=== PATIENT | female | born 1995 | race American Indian/Alaskan Native ===

== ENCOUNTER 2017-01-12 15:58 | Emergency (ER) | payer MEDICAID ==
[2017-01-12 16:04] VITALS: BP 128/80; PULSE 97; RESP 18; TEMP 98; O2SAT 98
== END 2017-01-12 17:30 | disposition left against medical advice (07) ==
LOC: H.ER 15:58
DX: Z02.89 Encounter for other administrative examinations (principal)

== ENCOUNTER 2017-11-02 13:18 | Emergency (ER) | payer MEDICAID ==
[2017-11-02 13:27] VITALS: O2SAT 100
[2017-11-02 14:14] LABS: BASO # 0.1 K/uL (0.0-0.2); BASO % 0.5 % (0.0-2.0); EOS # 0.1 K/uL (0.0-0.7); EOS % 0.8 % (0.0-4.0); HEMOGLOBIN 12.1 g/dL (12.0-16.0); LYMPH # 2.4 K/uL (1.0-4.3); LYMPH % 20.3 % (20.0-40.0); MEAN CELL VOLUME 87.3 fl (81.0-99.0); MEAN CORPUSCULAR HGB CONC 33.2 g/dL (33.0-37.0); MEAN PLATELET VOLUME 8.5 fl (7.2-11.7); MONO # 0.8 K/uL (0.0-0.8); MONO % 6.5 % (0.0-10.0); NEUT # 8.7 K/uL (1.8-7.0); NEUT % 71.9 % (50.0-75.0); RBC 4.18 Mil/uL (3.80-5.20); RED CELL DISTRIBUTION WIDTH 13.6 % (11.5-14.5); WHITE BLOOD COUNT 12.1 K/uL (4.8-10.8)
--- NOTE | 2017-11-02 14:14 | ED PDOC ---
HPI: General Adult Time Seen by Provider: 11/02/17 13:32 Chief Complaint (Nursing): Syncope Chief Complaint (Provider): "my legs gave out on me" History Per: Patient History/Exam Limitations: no limitations Onset/Duration Of Symptoms: Intermittent Episodes Current Symptoms Are (Timing): Still Present Severity: Moderate Location Of Discomfort (Image): 1 - pain and weakness. denies sensory loss or urinary issues/fecal incontinence to area Recent Trauma: denies Additional Complaint(s): 22yo female c/o bilateral lower extremity weakness causing her to fall today. has had bilateral low back pain ongoing intermittently for several months , but this is the first instance of lower extremity weakness. was walking with sister, and had sudden loss of postural tone to legs, difficulty getting up, hence EMS called. Denies incontinence, saddle anesthesia, fever, prior trauma or prior history of same. 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 Against Medical Advice - AMA Patient Left Against Medical Advice: The patient declines admission to the hospital and wishes to leave the Emergency Department. This action is against my medical advice. This decision was made with informed refusal. The patient was told that admission to the hospital is necessary. Explanation of the reasons why were discussed. The risks of leaving were explained to the patient and include, but are not limited to, worsening of known or currently unknown conditions, permanent disability and from undiagnosed or untreated conditions. The patient has the capacity to make this informed decision and understands my explanation of the current medical problem and risks of leaving. The patient voluntarily accepts these risks and signed an AMA form documenting our conversation. The patient was given the opportunity to ask questions and reconsider. The patient was encouraged to return to the Emergency Department at any time for further care. Past Medical History Reviewed: Historical Data, Nursing Documentation, Vital Signs Vital Signs: Last Vital Signs Temp 98.0 F 11/02/17 13:24 Pulse 78 11/02/17 13:24 Resp 18 11/02/17 13:24 BP Pulse Ox 100 11/02/17 17:43 - Medical History PMH: No Chronic Diseases Other PMH: on implant for contraception placed 2017 - Surgical History Surgical History: No Surg Hx - Family History Family History: States: Other Other Family History: DVT/PE - Home Medications Home Medications: Ambulatory Orders Medication Instructions Recorded Amoxicillin/Clavulanate [Augmentin 1 tab PO BID #14 tab 03/08/15 875 MG-125 MG] Ibuprofen [Motrin] 600 mg PO Q6H PRN #20 tab 03/08/15 Famotidine [Pepcid] 20 mg PO BID #10 tab 06/27/15 Ondansetron HCl [Zofran] 4 mg PO Q6 PRN #10 ml 06/27/15 - Allergies Allergies/Adverse Reactions: Allergies Allergy/AdvReac Type Severity Reaction Status Date / Time SEAFOOD Allergy ANAPHYLAXIS Uncoded 11/02/17 13:28 Review of Systems ROS Statement: Except As Marked, All Systems Reviewed And Found Negative Constitutional: Negative for: Fever, Chills Cardiovascular: Negative for: Chest Pain Respiratory: Negative for: Cough Gastrointestinal: Negative for: Abdominal Pain Genitourinary Female: Negative for: Dysuria Musculoskeletal: Negative for: Neck Pain, Shoulder Pain Skin: Negative for: Rash, Lesions Neurological: Positive for: Weakness, Numbness. Negative for: Incoordination, Headache, Dizziness Physical Exam - Reviewed Nursing Documentation Reviewed: Yes Vital Signs Reviewed: Yes - Physical Exam Appears: Positive for: Well, Non-toxic, No Acute Distress Head Exam: Positive for: ATRAUMATIC, NORMAL INSPECTION, NORMOCEPHALIC Skin: Positive for: Normal Color, Warm, DRY Eye Exam: Positive for: EOMI, Normal appearance, PERRL ENT: Positive for: Normal ENT Inspection Neck: Positive for: Normal, Painless ROM Cardiovascular/Chest: Positive for: Regular Rate, Rhythm Respiratory: Positive for: CNT, Normal Breath Sounds Gastrointestinal/Abdominal: Positive for: Soft. Negative for: Tenderness Back: Positive for: Normal Inspection. Negative for: Vertebral Tenderness, Decreased ROM, Muscle Spasm Rectal: Positive for: Other (refused) Extremity: Positive for: Normal ROM. Negative for: Deformity, Swelling DTR - Knee (R): 1+ DTR - Knee (L): 1+ Neurologic/Psych: Positive for: Alert, Motor/Sensory Deficits (LE weakness L>R RLE 4/5 strength LLE 3/5 strength; Upper ext 5/5 bilateral, finger to nose intact, unable to perform heel to stewart), Gait (unable to assess), Other ( babinski downgoing b/l) - Laboratory Results Result Diagrams: 11/02/17 14:00 11/02/17 14:00 - ECG O2 Sat by Pulse Oximetry: 100 Medical Decision Making Medical Decision Making: workup for LE weakness initiated. r/o spinal injury, guillian barre, myelitis, or other neuropathy or acute neurologic emergency initiated labs obtained CT brain obtained and unremarkable MRI LS spine obtained Accession No. 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 TECHNIQUE: Multiecho multiplanar sequences were performed through the lumbar spine without the use of intravenous contrast. FINDINGS: Normal lumbar lordosis. Vertebral body heights are preserved. Marrow signal unremarkable. Conus medullaris unremarkable at the level of T12-L1 disc interspace. Paraspinal soft tissues are unremarkable. T12-L1: No disc herniation, spinal canal stenosis or neural foraminal narrowing. L1-2: No disc herniation, spinal canal stenosis or neural foraminal narrowing. L2-3: No disc herniation, spinal canal stenosis or neural foraminal narrowing. L3-4: No disc herniation, spinal canal stenosis or neural foraminal narrowing. L4-5: No disc herniation, spinal canal stenosis or neural foraminal narrowing. L5-S1: No disc herniation, spinal canal stenosis or neural foraminal narrowing. OTHER FINDINGS: None. IMPRESSION: Unremarkable non contrast enhanced MRI of the lumbar spine. 515p On re-eval, is able to get up from bed on her own. But gait is slow, intentional and not fluid. States legs feel "heavy". I discussed results w patient and recommended admission to hospitalist for neuro evaluation and other testing to r/o acute serious neurologic pathology including Guillian Faison, or other peripheral or central nervous process. She understood potential diagnostic considerations but states wants to leave hospital. Risks including paralysis, disability, inability to walk, need to use wheelchair , respiratory failure, or possible discussed. She signed AMA form after being given chance to ask ample questions, witnessed by KATIE Song. States she will followup w [facility]. Also given utilization review specialist neuro contact Dr Dorado. Disposition - Clinical Impression Clinical Impression: Lower extremity weakness - Patient ED Disposition Is Patient to be Admitted: No Counseled Patient/Family Regarding: Studies Performed, Diagnosis, Need For Followup, Rx Given - Disposition Referrals: Srinivas Dorado MD [Medical Doctor] - [facility] [Provider Group] [facility] [Provider Group] [facility] [Provider Group] Disposition: Against Medical Advice Disposition Time: 17:40 Condition: STABLE Additional Instructions: YOU LEFT HOSPITAL AGAINST MEDICAL ADVICE. ITS POSSIBLE YOU HAVE A SIGNIFICANT PROBLEM WITH YOUR SPINAL CORD WHICH CAN CAUSE PARALYSIS, DISABILITY OR EVEN IF LEFT UNTREATED, YOU ARE DOING BY LEAVING THE HOSPITAL AT THIS TIME. ALL RISKS AND BENEFITS OF HOSPITAL ADMISSION WERE EXPLAINED, INCLUDING BENEFITS OF SEEING A NEUROLOGIST AND HAVING OTHER TESTING PERFORMED TO DETERMINE PRECISE CAUSE OF YOUR SYMPTOMS. RETURN TO ER AT EARLIEST CONVENIENCE TO HAVE FURTHER TESTING AND TREATMENT PERFORMED. Instructions: Guillain-Charles Syndrome, Generalized Weakness (DC), Leaving Against Medical Advice Forms: [facility] ([place]), [facility] ED School/Work Excuse
[2017-11-02 14:39] LABS: ALBUMIN 3.8 g/dL (3.5-5.0); ALT/SGPT 37 U/L (9-52); AST/SGOT 25 U/L (14-36); BLOOD UREA NITROGEN 9 mg/dl (7-17); CALCIUM 9.2 mg/dL (8.4-10.2); GFR AFRICAN-AMERICAN > 60; GFR NON-AFRICAN AMERICAN > 60
--- NOTE | 2017-11-02 15:04 | CT ---
PROCEDURE: CT HEAD WITHOUT CONTRAST. HISTORY: r/o ICH COMPARISON: None available. TECHNIQUE: Axial computed tomography images were obtained through the head/brain without intravenous contrast. Radiation dose: Total exam DLP = 851.48 mGy-cm. This CT exam was performed using one or more of the following dose reduction techniques: Automated exposure control, adjustment of the mA and/or kV according to patient size, and/or use of iterative reconstruction technique. FINDINGS: HEMORRHAGE: No intracranial hemorrhage. BRAIN: Normal schneider-white matter differentiation and density are appreciated throughout the cerebrum and cerebellum with the brainstem appearing unremarkable as well. There is no mass effect. There is no suspicious extra-axial fluid collection and the midline brain anatomy appears diffusely unremarkable. VENTRICLES: Unremarkable. No hydrocephalus. CALVARIUM: No destructive bony lesion or displaced fracture identified including through the skullbase. PARANASAL SINUSES: Unremarkable as visualized. No significant inflammatory changes. MASTOID AIR CELLS: Unremarkable as visualized. No inflammatory changes. OTHER FINDINGS: None. IMPRESSION: Unremarkable noncontrast head CT.
--- NOTE | 2017-11-02 16:31 | MRI ---
PROCEDURE: MR LUMBAR SPINE WITHOUT CONTRAST HISTORY: b/l LE weakness L>R worsening x1 week COMPARISON: None available. TECHNIQUE: Multiecho multiplanar sequences were performed through the lumbar spine without the use of intravenous contrast. FINDINGS: Normal lumbar lordosis. Vertebral body heights are preserved. Marrow signal unremarkable. Conus medullaris unremarkable at the level of T12-L1 disc interspace. Paraspinal soft tissues are unremarkable. T12-L1: No disc herniation, spinal canal stenosis or neural foraminal narrowing. L1-2: No disc herniation, spinal canal stenosis or neural foraminal narrowing. L2-3: No disc herniation, spinal canal stenosis or neural foraminal narrowing. L3-4: No disc herniation, spinal canal stenosis or neural foraminal narrowing. L4-5: No disc herniation, spinal canal stenosis or neural foraminal narrowing. L5-S1: No disc herniation, spinal canal stenosis or neural foraminal narrowing. OTHER FINDINGS: None. IMPRESSION: Unremarkable non contrast enhanced MRI of the lumbar spine.
[2017-11-02 18:03] VITALS: BP 119/76; PULSE 73; RESP 16; TEMP 97.9
--- NOTE | 2017-11-03 09:01 | CARD ---
APPROVED REPORT EKG Measurement Heart [id number] <Conclusion> Normal sinus rhythm with sinus arrhythmia Minimal voltage criteria for LVH, may be normal variant Borderline ECG
== END 2017-11-02 18:00 | disposition home or self-care (01) ==
LOC: H.ER 13:18
DX: M62.81 Muscle weakness (generalized) (principal)